=== PATIENT | male | born 1965 | race Caucasian/White ===

== ENCOUNTER → 2024-01-23 11:33 | Outpatient (REF) | payer OTHER, SELFPAY | LOC: HWRAD 11:33 | PROVIDERS: ATTENDING PHYSICIAN Internal Medicine; FAMILY PHYSICIAN Family Medicine | DX: Z87.891 Personal history of nicotine dependence (principal) | CPT/HCPCS: 71271 ==

== ENCOUNTER → 2025-03-04 11:23 | Outpatient (REF) | payer OTHER, SELFPAY | LOC: HWRAD 11:23 | PROVIDERS: ATTENDING PHYSICIAN Family Medicine | DX: Z87.891 Personal history of nicotine dependence (principal) | CPT/HCPCS: 71271 ==

== ENCOUNTER 2025-03-11 10:55 | Outpatient (RCR) | payer OTHER, SELFPAY | END 2025-03-11 23:59 | disposition home or self-care (01) | LOC: RPT 10:55 | PROVIDERS: ATTENDING PHYSICIAN Family Medicine | DX: M79.601 Pain in right arm (principal); Z73.6 Limitation of activities due to disability | CPT/HCPCS: 97110; 97162 ==

== ENCOUNTER 2025-03-25 15:54 | Outpatient (RCR) | payer OTHER, SELFPAY | END 2025-03-25 23:59 | disposition home or self-care (01) | LOC: RPT 15:54 | PROVIDERS: ATTENDING PHYSICIAN Family Medicine | DX: M79.601 Pain in right arm (principal); Z73.6 Limitation of activities due to disability; M62.81 Muscle weakness (generalized) | CPT/HCPCS: 97010; 97110; 97140 ==